=== PATIENT | female | born 1975 | race Caucasian/White ===

== ENCOUNTER → 2016-08-31 | Outpatient (CLI) | payer OTHER ==
[~2016-08-31] MED LIST: FAMO20TA5 PO; FLDR.1T PO; FLUC200T45 PO; HYDR-3454 PO; HYDR-3729 PO; LIRA0.6P SQ; LVT.1T PO; MTF500T PO; NATURE-THROID PO; NFPRILOC40 PO; PRD10T PO
--- OUTSIDE RECORDS SUMMARY | 2016-08-31 10:38 | XMS REPORT | Continuity of Care Document ---
Author Author [facility] Organization [facility] Address Unknown Phone Unavailable Care Team Providers Care Chorus Master Name Role Phone Salinas, Jennifer CALL PCP [phone] Source Comments Some departments are not documenting in the electronic medical record. If you do not see the information that you expected, contact Release of Information in the Health Information Management department at [phone] for further assistance in locating additional records.[facility] Active Allergies and Adverse Reactions Allergen Noted Date Severity Reactions Comments Darvocet 01/21/2012 UNKNOWN Demerol 01/21/2012 UNKNOWN Morphine 01/21/2012 UNKNOWN Toradol 01/21/2012 UNKNOWN Current Medications Prescription Sig. Disp. Refills Start End Date Status Date LEVOTHYROXINE SODIUM Take by mouth. Active (SYNTHROID PO) FLUDROCORTISONE ACETATE Take by mouth. Active (FLORINEF PO) LIRAGLUTIDE (VICTOZA SC) Inject into area(s) as Active directed. LOPERAMIDE HCL (IMODIUM Take by mouth. 1 - 2 Active PO) tablets taken 30 minutes before each meal PROMETHAZINE HCL Take by mouth as Needed. Active (PHENERGAN PO) For nausea. 1/2 - 1 tablet Active Problems Not on file Social History Tobacco Use Types Packs/Day Years Used Date Never Smoker Alcohol Use Drinks/Week oz/Week Comments Yes occasional Last Filed Vital Signs Vital Sign Reading Time Taken Blood Pressure 106/66 05/12/2012 9:20 AM CDT Pulse 99 05/12/2012 9:29 AM CDT Temperature 36.4 C (97.5 F) 05/12/2012 8:26 AM CDT Respiratory Rate 18 10/29/2011 6:43 PM CDT Height 1.702 m (5' 7") 05/12/2012 7:08 AM CDT Weight 63.504 kg (140 lb) 05/12/2012 7:08 AM CDT Body Mass Index 21.92 05/12/2012 7:08 AM CDT Oxygen Saturation 98% 05/12/2012 9:29 AM CDT Plan of Care Health Maintenance Due Date Last Done Comments Physical (Comprehensive) 1982 Exam Pertussis Vaccine 1986 Tetanus Vaccine 1992 Cervical Cancer Screening 1996 Influenza Vaccine 03/19/2016 Results from Last 3 Months Not on file
--- NOTE | 2016-08-31 11:21 | Diagnostic Imaging Report ---
EXAMINATION: Left lower extremity duplex venous ultrasound. TECHNIQUE: DVT protocol. Multiple sonographic images with color Doppler and waveform interrogation were performed of the left lower extremity veins with compression and augmentation maneuvers. INDICATION: Left leg pain. FINDINGS: The left lower extremity veins from the groin to below the knee veins were examined with normal color-flow, compressibility and waveform demonstrated. The great saphenous vein is patent. IMPRESSION: No evidence of DVT in the left lower extremity. Dictated by: Dictated on workstation # [id number]
== END ==
LOC: RAD 10:35
DX: M79.605 Pain in left leg (principal); Z83.2 Family history of diseases of the blood and blood-forming organs and certain disorders involving the immune mechanism

== ENCOUNTER → 2017-07-08 | Outpatient (CLI) | payer OTHER ==
--- NOTE | 2017-07-08 19:52 | Diagnostic Imaging Report ---
EXAMINATION: Bilateral diagnostic mammogram with tomography evaluation. The current study was also evaluated with a Computer Aided Detection (CAD) system. COMPARISON: 06/24/2016. INDICATION: Upper-outer left breast palpable lump. FINDINGS: The breasts are composed of heterogeneously dense parenchyma which may decrease mammographic sensitivity. Surgical clips in the upper-outer aspect of the right breast are seen. There are bilateral circumscribed masses seen, similar to prior studies. These are suggestive of cysts. Solid benign masses such as fibroadenomas could also explain these findings. There is no developing suspicious mass or calcification seen. IMPRESSION: Bilateral upper-outer stable benign-appearing circumscribed masses again noted, probably related to cysts or fibroadenomas. Ultrasound evaluation of the palpable area is pending. ACR BI-RADS Category 0: Incomplete. (Needs additional imaging evaluation). Result letter will be mailed to the patient. Note: At least 10% of breast cancer is not imaged by mammography. Dictated by: Dictated on workstation # [id number]
--- NOTE | 2017-07-08 20:00 | Diagnostic Imaging Report ---
EXAMINATION: Left breast ultrasound. INDICATION: Palpable lump in the upper outer aspect of the left breast. FINDINGS: There is a 2.4 x 1.2 x 1.6 cm minimally complicated cyst with a thin septation seen at 2 o'clock zone, 4 cm from the nipple with no solid component. This corresponds with the palpable area with no solid mass. IMPRESSION: The palpable lump is a minimally complicated cyst with a thin septation. No suspicious mass. ACR BI-RADS Category 2: Benign findings. Result letter will be mailed to the patient. Note: At least 10% of breast cancer is not imaged by mammography. Dictated by: Dictated on workstation # [id number]
== END ==
LOC: RAD 13:49
PROVIDERS: ATTEND Nurse Practitioner Family
DX: N63.0 Unspecified lump in unspecified breast (principal)
CPT/HCPCS: 76642; 77066

== ENCOUNTER → 2018-08-04 | Outpatient (CLI) | payer OTHER ==
--- NOTE | 2018-08-05 09:15 | Diagnostic Imaging Report ---
INDICATION: Routine screening. COMPARISON: 07/08/2017 and 06/24/2016. TECHNIQUE: 2D and 3D bilateral screening mammography was performed with CAD. FINDINGS: Both breasts remain heterogeneously dense, limiting the sensitivity of mammography. Surgical clips are identified in the upper outer right breast. There are numerous rounded masses in both breasts which appear to be fairly stable and most consistent with benign etiologies. No spiculated mass or malignant appearing microcalcifications are seen. The axillae are unremarkable. IMPRESSION: No mammographic features suspicious for malignancy are identified. ACR BI-RADS Category 2: Benign findings. Result letter will be mailed to the patient. Note: At least 10% of breast cancer is not imaged by mammography. Dictated by: Dictated on workstation # [id number]
== END ==
LOC: RAD 15:19
PROVIDERS: ATTEND Nurse Practitioner Family
DX: Z12.31 Encounter for screening mammogram for malignant neoplasm of breast (principal)
CPT/HCPCS: 77067

== ENCOUNTER → 2019-02-16 | Outpatient (CLI) | payer OTHER ==
[~2019-02-16] MED LIST changes: -HYDR-3454 PO; +HYDR-3455 PO
--- NOTE | 2019-02-16 08:47 | Diagnostic Imaging Report ---
Indication: Palpable lumps in the right breast. Correlation is made with prior mammogram from 08/04/2018 and 07/08/2017. 2-D and 3-D unilateral right diagnostic mammography was performed. There are surgical clips in the upper outer right breast posterior depth. There are numerous circumscribed round masses in the upper outer right breast at the areas of palpable abnormality. These have been present on multiple prior mammograms and are likely owing to a benign etiology. No suspicious microcalcifications are seen. Right axilla is unremarkable. Impression: BI-RADS zero Circumscribed rounded densities upper outer right breast near the area of palpable abnormality. This may represent cysts. Further evaluation with ultrasound is recommended and will be performed today. ACR BI-RADS Category 0: Incomplete. (Needs additional imaging evaluation). Result letter will be mailed to the patient. Note: At least 10% of breast cancer is not imaged by mammography. Dictated by: Dictated on workstation # [id number]
--- NOTE | 2019-02-16 09:22 | Diagnostic Imaging Report ---
Indication: Palpable lumps in the right breast. Correlation is made with diagnostic mammogram earlier same day. Sonographic interrogation of the areas of lump in the upper outer right breast was performed. There are multiple simple appearing cysts present, primarily 10 o'clock location 4-5 cm from the nipple. Largest cyst measures 2.5 x 1.8 x 2.7 cm. No solid lesions are seen. Impression: Multiple right breast cysts in the area of palpable abnormality. No solid breast mass is identified. BI-RADS 2 ACR BI-RADS Category 2: Benign findings. Result letter will be mailed to the patient. Note: At least 10% of breast cancer is not imaged by mammography. Dictated by: Dictated on workstation # [id number]
== END ==
LOC: RAD 08:06
PROVIDERS: ATTEND Obstetrics & Gynecology Female Pelvic Medicine and Reconstructive Surgery
DX: N60.01 Solitary cyst of right breast (principal); N63.11 Unspecified lump in the right breast, upper outer quadrant

== ENCOUNTER 2021-03-28 10:27 | Outpatient (CLI) | payer OTHER ==
[2021-03-28] MEDS ORDERED: EPINEPHrine INJECTION 1 MG/ML AMP IM PRN (10:30)
[2021-03-28] MEDS ORDERED: diphenhydrAMINE 50 MG/ML INJ (BENADRYL) IV PRN (10:30)
[2021-03-28] MEDS ORDERED: CASIRIVIMAB/IMDEVIMAB 1,200 MG in NS (IVPB) 250 ML IV ONE (10:30)
[2021-03-28] MEDS ORDERED: ONDANSETRON 4 MG/2 ML (SDV) Z0FRAN IV PRN (10:30)
[2021-03-28] MEDS ORDERED: ACETAMINOPHEN 500 MG TAB (TYLENOL) PO PRN (10:30)
[2021-03-28 10:32] VITALS: BP 145/98
[2021-03-28 11:37] VITALS: BP 112/69
== END 2021-03-28 12:28 | disposition home or self-care (01) ==
LOC: INFUSION 10:27
PROVIDERS: ATTEND Nurse Practitioner Family
DX: Z23 Encounter for immunization (principal); U07.1 COVID-19

== ENCOUNTER → 2021-04-09 | Outpatient (CLI) | payer OTHER ==
--- NOTE | 2021-04-09 07:56 | Diagnostic Imaging Report ---
PA and lateral chest at 751h. INDICATION: Pneumonia history of COVID The heart size is within normal limits and stable when compared to 09/26/2014. The prior study did note atelectasis/infiltrate in the left lung base as well as a pneumoperitoneum. Neither of those findings is identified on this study. The lungs seem generally clear. There is no sign of failure, pneumonia or a pleural effusion. The mediastinum is not widened. The osseous structures are intact. IMPRESSION: There is no evidence for active disease. Report was faxed to [facility] by tonya at 7:56am. Dictated by: Dictated on workstation # [id number]
== END ==
LOC: RAD 07:24
PROVIDERS: ATTEND Internal Medicine
DX: J18.9 Pneumonia, unspecified organism (principal); Z86.16 Personal history of COVID-19
CPT/HCPCS: 71046

== ENCOUNTER 2022-02-11 08:33 | Outpatient (RCR) | payer OTHER | END 2022-02-15 | disposition home or self-care (01) | PROVIDERS: ATTEND Family Medicine Sports Medicine | DX: M75.01 Adhesive capsulitis of right shoulder (principal); E11.9 Type 2 diabetes mellitus without complications ==